=== PATIENT | male | born 1985 | race Caucasian/White ===

== ENCOUNTER 2024-09-10 13:08 | Emergency (ER) | payer MEDICARE ==
[2024-09-10 13:13] VITALS: TEMP 98.4
--- NOTE | 2024-09-10 14:19 | ED ---
General Adult HPI - General Chief complaint: Recheck/Abnormal Lab/Rx Stated complaint: high blood pressure Time Seen by Provider: 09/10/24 14:08 Source: patient Mode of arrival: ambulatory Limitations: no limitations - History of Present Illness Initial comments: Dictation was produced using [employer] dictation software. please excuse any grammatical, word or spelling errors. Chief Complaint: 39-year-old male with history of hypertension presents to the ER for hypertension History of Present Illness: Patient is a 39-year-old male presents emergency d epartment with hypertension. Patient currently a resident at [facility] detox facility. 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 He had his vitals checked today and found to have elevated blood pressure with systolic measurement approximately 200/100. Patient takes blood pressure medications he has been noncompliant. He has been prescribed lisinopril hydrochlorothiazide in the past. Denies any complaints. The ROS documented in this emergency department record has been reviewed and confirmed by me. Those systems with pertinent positive or negative responses h ave been documented in the HPI. All other systems are other negative and/or noncontributory. - Related Data Home Medications Medication Instructions Recorded Confirmed Ibuprofen [Motrin Ib] 600 mg PO Q6H PRN 09/10/24 09/10/24 Lisinopril-Hctz 10-12.5 mg 1 tab PO DAILY 09/10/24 09/10/24 [Zestoretic 10-12.5] Previous Rx's Medication Instructions Recorded Lisinopril-Hctz 10-12.5 mg 1 tab PO DAILY 24 Days #24 tab 09/10/24 [Zestoretic 10-12.5] Allergies Allergy/AdvReac Type Severity Reaction Status Date / Time bee venom protein (honey bee) Allergy Anaphylaxis Verified 09/10/24 14:22 Review of Systems ROS Statement: Those systems with pertinent positive or pertinent negative responses have been documented in the HPI. ROS Other: All systems not noted in ROS Statement are negative. Past Medical History Past Medical History: Hypertension History of Any Multi-Drug Resistant Organisms: None Reported Past Surgical History: No Surgical Hx Reported Past Psychological History: No Psychological Hx Reported Smoking Status: Current every day smoker Past Alcohol Use History: None Reported Past Drug Use History: Methamphetamine General Exam - General Exam Comments Initial Comments: PHYSICAL EXAM: General Impression: Alert and oriented x3, not in acute distress HEENT: Normocephalic atraumatic, extra-ocular movements intact, pupils equal and reactive to light bilaterally, mucous membranes moist. Cardiovascular: Heart regular rate and rhythm Chest: Able to complete full sentences, no retractions, no tachypnea Abdomen: abdomen soft, non-tender, non-distended, no organomegaly Musculoskeletal: Pulses present and equal in all extremities, no peripheral edema Motor: no focal deficits noted Neurological: CN II-XII grossly intact, no focal motor or sensory deficits noted Skin: Intact with no visualized rashes Psych: Normal affect and mood Limitations: no limitations Course Vital Signs 09/10/24 13:10 Temperature 98.4 F Pulse Rate 94 Respiratory 18 Rate Blood Pressure 167/108 O2 Sat by Pulse 99 Oximetry - Reevaluation(s) Reevaluation #1: 09/10/24 14:19 Pharmacy prescription records were queried by our photo optics technician. Patient filled prescription for lisinopril/hydrochlorothiazide 03/12.5 in May 10, 2024 Medical Decision Making - Medical Decision Making Was pt. sent in by a medical professional or institution (, PA, TAX CLERK, urgent c are, hospital, or penitentiary...) When possible be specific @ -No Did you speak to anyone other than the patient for history (EMS, parent, family, police, friend...)? What history was obtained from this source @ -No Did you review nursing and triage notes (agree or disagree)? Why? @ -I reviewed and agree with nursing and triage notes Were old charts reviewed (outside hosp., previous admission, EMS record, old EKG, old radiological studies, urgent care reports/EKG's, penitentiary records)? Report findings @ -No old charts were reviewed Differential Diagnosis (chest pain, altered mental status, abdominal pain women, abdominal pain men, vaginal bleeding, musculoskeletal, weakness, fever, dyspnea, syncope, headache, dizziness, GI bleed, back pain, seizure, CVA, palpatations, mental health)? @ -Asymptomatic hypertension, hypertensive urgency, hypertensive emergency EKG interpreted by me (3pts min.). @ -None done X-rays interpreted by me (1pt min.). @ -None done CT interpreted by me (1pt min.). @ -None done U/S interpreted by me (1pt. min.). @ -None done What testing was considered but not performed or refused? (CT, X-rays, U/S, labs)? Why? @ -None What meds were considered but not given or refused? Why? @ -None Was smoking cessation discussed for >3mins.? @ -No Were there social determinants of health that impacted care today? How? (Homelessness, low income, unemployed, alcoholism, drug addiction, transportation, low edu. Level, literacy, decrease access to med. care, senior living, rehab)? @ -No Was there de-escalation of care discussed even if they declined (Discuss DNR or withdrawal of care, Hospice)? DNR status @ -No What co-morbidities impacted this encounter? (DM, HTN, Smoking, COPD, CAD, Cancer, CVA, ARF, Chemo, Hep., AIDS, mental health diagnosis, sleep apnea, morbid obesity)? @ -None Was patient admitted / discharged? Hospital course, mention meds given and route, prescriptions, significant lab abnormalities, going to OR and other pertinent info. @ -39-year-old male presents to the emergency department asymptomatic hypertension. Vital signs upon arrival are within acceptable limits. Labs are unremarkable. Patient discharged advised follow-up with primary care doctor. Patient given refill on his blood pressure medications. Did you discuss the management of the patient with other professionals (professionals i.e. , PA, TAX CLERK, lab, RT, psych nurse, administrator social welfare, retarder operator, teacher, crime prevention police officer, casework supervisor)? Give summary @ -No Was critical care preformed (if so, how long)? @ -No Undiagnosed new problem with uncertain prognosis? @ -No Drug Therapy requiring intensive monitoring for toxicity (Heparin, Nitro, Insulin, Cardizem)? @ -No Were any procedures done? @ -No Diagnosis/symptom? Acute, or Chronic, or Acute on Chronic? Uncomplicated (without systemic symptoms) or Complicated (systemic symptoms)? @ -Asymptomatic hypertension Side effects of treatment? @ -No Exacerbation, Progression, or Severe Exacerbation? @ -No Poses a threat to life or bodily function? How? (Chest pain, USA, CA, pneumonia, PE, COPD, DKA, ARF, appy, cholecystitis, CVA, Diverticulitis, Homicidal, Suicidal, threat to staff... and all critical care pts) @ -No - Lab Data Result diagrams: 09/10/24 14:47 09/10/24 14:47 Lab Results 09/10/24 09/10/24 Range/Units 14:47 14:47 WBC 9.56 (4.50-10.00) 10*3/uL RBC 4.86 (4.40-5.60) 10*6/uL Hgb 14.8 (13.0-17.0) g/dL Hct 40.8 (39.6-50.0) % MCV 84.0 (80.0-97.0) fL MCH 30.5 (27.0-32.0) pg MCHC 36.3 (32.0-37.0) g/dL Plt Count 329 (140-440) 10*3/uL MPV 10.3 (9.5-12.2) fL Immature Gran % (Auto) 0.2 % Neutrophils % 72.1 % Lymphocytes % 18.5 % Monocytes % 6.5 % Eosinophils % 2.5 % Basophils % 0.2 % Immature Gran # 0.02 (0.00-0.04) 10*3/uL Neutrophils # 6.89 (1.80-7.70) 10*3/uL Lymphocytes # 1.77 (0.90-5.00) 10*3/uL Monocytes # 0.62 (0.20-1.00) 10*3/uL Eosinophils # 0.24 (0.04-0.35) 10*3/uL Basophils # 0.02 (0.00-0.10) 10*3/uL Sodium 138 (137-145) mmol/L Potassium 3.2 L (3.5-5.1) mmol/L Chloride 99 (98-107) mmol/L Carbon Dioxide 34 H (22-30) mmol/L Anion Gap 5 mmol/L BUN 16 (9-20) mg/dL Creatinine 1.04 (0.66-1.25) mg/dL Est GFR (CKD-EPI)AfAm >90 (>60 ml/min/1.73 sqM) Est GFR (CKD-EPI)NonAf 90 (>60 ml/min/1.73 sqM) Glucose 103 H (74-99) mg/dL Calcium 9.4 (8.4-10.2) mg/dL Disposition Clinical Impression: Asymptomatic hypertension Disposition: HOME SELF-CARE Condition: Fair Instructions (If sedation given, give patient instructions): Hypertension (ED) Prescriptions: Lisinopril-Hctz 10-12.5 mg [Zestoretic 10-12.5] 1 tab PO DAILY 24 Days #24 tab Is patient prescribed a controlled substance at d/c from ED?: No Referrals: Declan Sampson MD [REFERRING] - 1-2 days Time of Disposition: 15:38
[2024-09-10 14:53] LABS: Basophils # (A) 0.02 10*3/uL (0.00-0.10); Basophils % (A) 0.2 %; Eosinophils # (A) 0.24 10*3/uL (0.04-0.35); Eosinophils % (A) 2.5 %; HCT 40.8 % (39.6-50.0); HGB 14.8 g/dL (13.0-17.0); Lymphocytes # (A) 1.77 10*3/uL (0.90-5.00); Lymphocytes % (A) 18.5 %; MCH 30.5 pg (27.0-32.0); MCHC 36.3 g/dL (32.0-37.0); Mean Platelet Volume 10.3 fL (9.5-12.2); Monocytes # (A) 0.62 10*3/uL (0.20-1.00); Monocytes % (A) 6.5 %; Neutrophils # (A) 6.89 10*3/uL (1.80-7.70); Neutrophils % (A) 72.1 %; Platelet Count 329 10*3/uL (140-440); RBC 4.86 10*6/uL (4.40-5.60); RDW 13.1 % (11.5-14.5); WBC 9.56 10*3/uL (4.50-10.00)
[2024-09-10 15:09] LABS: African American GFR (CKD) >90 (>60 ml/min/1.73 sqM); Anion Gap 5 mmol/L; Blood Urea Nitrogen 16 mg/dL (9-20); Calcium 9.4 mg/dL (8.4-10.2); Carbon Dioxide 34 mmol/L (22-30); Chloride 99 mmol/L (98-107); Glucose 103 mg/dL (74-99); Non-African American GFR(CKD) 90 (>60 ml/min/1.73 sqM); Potassium 3.2 mmol/L (3.5-5.1); Sodium 138 mmol/L (137-145)
[2024-09-10 15:43] VITALS: BP 164/106; PULSE 60; RESP 20
== END 2024-09-10 15:50 | disposition home or self-care (01) ==
LOC: EC 13:08
DX: I10 Essential (primary) hypertension (principal); F17.200 Nicotine dependence, unspecified, uncomplicated; Z91.030 Bee allergy status
CPT/HCPCS: 36415; 80048; 85025; 99283